=== PATIENT | female | born 2000 | race Two or more races ===

== ENCOUNTER 2024-07-16 13:09 | Emergency (ER) | payer OTHER ==
[~2024-07-16] VITALS: Ht 152.4 cm; Wt 65.8 kg
[2024-07-16] MEDS ORDERED: BUTALB/ACETAMINOPHEN/CAFFEINE 1 TAB TABLET PO ONE (15:00)
[2024-07-16 16:16] LABS: HEMATOCRIT 35.7 % (36.0-45.00); HEMOGLOBIN 11.9 g/dL (12.0-15.00); MEAN CELL VOLUME 90.2 fL (80.00-100.00); MEAN CORPUSCULAR HEMOGLOBIN 30.2 pg (27.00-32.0); MEAN CORPUSCULAR HGB CONC 33.4 g/dl (32.0-36.0); PLATELET COUNT 246 K/uL (150-450); RED BLOOD COUNT 3.95 M/uL (4.00-6.00)
[2024-07-16 16:28] LABS: ALBUMIN 4.4 gm/dL (3.4-5.0); BILIRUBIN TOTAL 0.38 mg/dL (0.3-1.2); CALCIUM 9.2 mg/dL (8.5-10.1); CREATININE SERUM 0.89 mg/dL (0.55-1.02); GFR 77.28; GLOBULINA 3.4 G/DL (2.4-3.5); POTASSIUM 3.88 mEq/L (3.5-5.1); TOTAL PROTEIN 7.8 gm/dL (6.4-8.2)
[2024-07-16] MEDS ORDERED: BUTALB-ACETAMI1 EAC2 PO (17:59)
== END 2024-07-16 18:05 ==
LOC: ER 13:11
PROVIDERS: General Practice
DX: G44.209 Tension-type headache, unspecified, not intractable (principal); Z20.822 Contact with and (suspected) exposure to COVID-19